=== PATIENT | male | born 1950 | race Caucasian/White ===

== ENCOUNTER 2019-11-05 10:42 | Outpatient (CLI) | payer OTHER, SELFPAY ==
--- NOTE | ~2019-11-05 | XR_ITS ---
EXAMINATION: XR chest 2V EXAM DATE: 11/05/2019 11:21 INDICATION: Personal history of nicotine dependence. TECHNIQUE: Frontal and lateral projections of the chest obtained and reviewed. There is no prior fariba dy for comparison. FINDINGS: The lungs are clear. There are no pleural effusions. The cardiomediastinal silhouette is within normal limits. There is no pneumothorax suspected. The bones and soft tissues are unremarkab le. There is aortic arterial sclerosis. IMPRESSION: Unremarkable chest x-ray exam. Reviewed, dictated and finalized at location A.
[2019-11-05 16:57] LABS: Basophils Absolute Auto 0.1 K/mm3 (0.0-0.1); Basophils Percent Auto 0.6 % (0.2-1.2); Eosinophils Absolute Auto 0.2 K/mm3 (0-0.3); Eosinophils Percent Auto 1.7 % (0-4.4); Immature Granulocyte Absolute 0.02 K/mm3 (0.00-0.031); Immature Granulocyte Percent A 0.2 % (0-0.5); Lymphocytes Absolute Auto 2.09 K/mm3 (0.9-3.2); Mean Corpuscular Hemoglobin 30.1 pg (26-34); Mean Corpuscular Volume 88.3 fl (80-100); Mean Platelet Volume 10.2 fl (7.4-10.4); Monocytes Absolute Auto 0.7 K/mm3 (0.1-0.6); Monocytes Percent Auto 7.8 % (2.6-8.5); Neutrophils Absolute Auto 5.7 K/mm3 (1.3-6.7); Neutrophils Percent Auto 65.7 % (45.5-73.1); Platelet Count Result 236 k/mm3 (150-375); Red Blood Count 5.32 M/mm3 (4.6-6.20); Red Cell Distribution Width 13.2 % (11.5-14.5); White Blood Count 8.7 K/mm3 (4.5-10.0)
[2019-11-05 17:04] LABS: Add Urine Microscopic? YES; Appearance Urine Clear (Clear); Bilirubin Urine Negative (Negative); Blood Urine Negative (Negative); Color Urine Amber (Yellow); Glucose Urine UA 1+ mg/dL (Negative); Hyaline Casts Urine 30-49 /lpf; Ketones Urine Negative (Negative); Leukocyte Esterase Ur Negative LEU/UL (Negative); Mucus Urine Moderate /lpf; Nitrate Urine Negative (Negative); Protein Urine 1+ mg/dL (Negative); RBC Urine 0-2 /hpf (0-2); Specific Grav Ur 1.033 (1.001-1.035); Squamous Epithelial Cell Urine Rare /hpf (Few); WBC Urine 0-3 /hpf
[2019-11-05 17:05] LABS: IFOB Positive Control Positive; Immunochemical Fecal Occult Bl Negative (N)
[2019-11-05 18:06] LABS: Alanine Aminotransferase 26 U/L (4-50); Albumin Level 4.6 g/dL (3.5-5.1); Alkaline Phosphatase 49 U/L (38-126); Aspartate Amino Transferase 30 U/L (17-59); Bilirubin,Total 0.7 mg/dL (0.2-1.3); Blood Urea Nitrogen 18 mg/dL (9-20); Calcium 10.6 mg/dL (8.4-10.2); Carbon Dioxide 22 mmol/L (22-30); Chloride 104 mmol/L (98-107); Cholesterol 186 mg/dL (0-200); Estimated Glomerular Filt Rate > 60; Glucose 180 mg/dL (75-110); HDL Direct 54 mg/dL; Potassium 4.7 mmol/L (3.4-5.0); Sodium 138 mmol/L (137-145); Triglycerides 225 mg/dL (<150)
[2019-11-05 18:07] LABS: Iron 97 ug/dL (49-181)
[2019-11-05 18:14] LABS: LDL Cholesterol Direct 109 mg/dL
[2019-11-05 18:21] LABS: Percent Iron Saturation 23 % (20-50); Vitamin D 25 Hydroxy 31.7 ng/mL
[2019-11-05 18:34] LABS: Prostate Specific Antigen 0.1 ng/mL (< OR = 4.0)
[2019-11-05 19:11] LABS: Folic Acid > 20.0 ng/mL (2.76->20)
[2019-11-06 08:35] LABS: Creatinine Urine 418.7 mg/dL
== END 2019-11-05 10:43 | disposition home or self-care (01) ==
PROVIDERS: PCP Family Medicine; Visit Provider Family Medicine
DX: R53.83 Other fatigue (principal); Z79.899 Other long term (current) drug therapy; E11.9 Type 2 diabetes mellitus without complications; R23.2 Flushing; Z82.62 Family history of osteoporosis; Z86.010 Personal history of colon polyps; Z87.891 Personal history of nicotine dependence; Z12.5 Encounter for screening for malignant neoplasm of prostate
CPT/HCPCS: 36415; 71046; 80053; 80061; 81001; 82043; 82274; 82306; 82607; 82728; 82746; 83036; 83540; 83550; 84153; 84443; 84681; 85025; G0103

== ENCOUNTER 2021-01-06 12:18 | Outpatient (CLI) | payer OTHER, SELFPAY ==
--- NOTE | ~2021-01-06 | XR_ITS ---
EXAMINATION: XR chest 2V 01/06/2021 13:27 INDICATION: Personal history of nicotine dependence PROCEDURE: PA and lateral views of the chest COMPARISON: 11/05/2019 FINDINGS: The lungs are clear. The cardiomediastinal silhouette is within normal limits. There are no pleural effusions. There is no pneumothorax suspected. IMPRESSION: 1: NO ACUTE CARDIOPULMONARY DISEASE. Reviewed, dictated and finalized at location B.
[2021-01-06 18:57] LABS: Basophils Absolute Auto 0.1 K/mm3 (0.0-0.1); Basophils Percent Auto 0.6 % (0.2-1.2); Eosinophils Absolute Auto 0.2 K/mm3 (0-0.3); Eosinophils Percent Auto 1.8 % (0-4.4); Hematocrit 48.6 % (42.0-52.0); Immature Granulocyte Absolute 0.02 K/mm3 (0.00-0.031); Immature Granulocyte Percent A 0.2 % (0-0.5); Lymphocytes Absolute Auto 2.14 K/mm3 (0.9-3.2); Lymphocytes Percent Auto 25.8 % (18.3-44.2); Mean Corpuscular HGB Conc 32.9 g/dl (32-36); Mean Corpuscular Hemoglobin 29.3 pg (26-34); Mean Platelet Volume 10.3 fl (7.4-10.4); Monocytes Absolute Auto 0.6 K/mm3 (0.1-0.6); Neutrophils Absolute Auto 5.4 K/mm3 (1.3-6.7); Neutrophils Percent Auto 64.6 % (45.5-73.1); Platelet Count Result 226 k/mm3 (150-375); Red Blood Count 5.46 M/mm3 (4.6-6.20); Red Cell Distribution Width 13.2 % (11.5-14.5); White Blood Count 8.3 K/mm3 (4.5-10.0)
[2021-01-06 19:01] LABS: Add Urine Microscopic? YES; Appearance Urine Cloudy (Clear); Bilirubin Urine Negative (Negative); Blood Urine Negative (Negative); Color Urine Yellow (Yellow); Glucose Urine UA 2+ mg/dL (Negative); Ketones Urine Negative (Negative); Leukocyte Esterase Ur Negative LEU/UL (Negative); Mucus Urine Few /lpf; Nitrate Urine Negative (Negative); Protein Urine 2+ mg/dL (Negative); RBC Urine 0-2 /hpf (0-2); Specific Grav Ur 1.023 (1.001-1.035); Urobilinogen Urine Negative mg/dL (<2.0); WBC Urine 0-3 /hpf
[2021-01-06 19:21] LABS: Alanine Aminotransferase 25 U/L (4-50); Albumin Level 4.6 g/dL (3.5-5.1); Alkaline Phosphatase 39 U/L (38-126); Anion Gap 11 mmol/L (8-16); Aspartate Amino Transferase 30 U/L (17-59); Bilirubin,Total 0.9 mg/dL (0.2-1.3); Blood Urea Nitrogen 14 mg/dL (9-20); Calcium 11.1 mg/dL (8.4-10.2); Carbon Dioxide 25 mmol/L (22-30); Chloride 103 mmol/L (98-107); Cholesterol 191 mg/dL (0-200); Estimated Glomerular Filt Rate > 60; Glucose 171 mg/dL (75-110); HDL Direct 54 mg/dL; Potassium 4.7 mmol/L (3.4-5.0); Sodium 139 mmol/L (137-145); Triglycerides 274 mg/dL (<150)
[2021-01-06 19:24] LABS: Hemoglobin A1C 10.1 % (<5.7)
[2021-01-06 19:32] LABS: LDL Cholesterol Direct 87 mg/dL
[2021-01-06 19:39] LABS: Vitamin D 25 Hydroxy 32.4 ng/mL
[2021-01-06 19:52] LABS: Prostate Specific Antigen 0.1 ng/mL (< OR = 4.0)
[2021-01-06 20:30] LABS: Folic Acid > 20.0 ng/mL (2.76->20)
== END 2021-01-06 12:19 | disposition home or self-care (01) ==
PROVIDERS: PCP Family Medicine; Visit Provider Family Medicine
DX: E11.65 Type 2 diabetes mellitus with hyperglycemia (principal); R53.83 Other fatigue; Z13.9 Encounter for screening, unspecified; Z79.899 Other long term (current) drug therapy; Z82.62 Family history of osteoporosis; I10 Essential (primary) hypertension; Z87.891 Personal history of nicotine dependence; Z12.5 Encounter for screening for malignant neoplasm of prostate
CPT/HCPCS: 36415; 71046; 80053; 80061; 81001; 82306; 82607; 82746; 83036; 84153; 85025; G0103

== ENCOUNTER 2021-07-07 09:42 | Outpatient (CLI) | payer OTHER, SELFPAY ==
[2021-07-07 20:16] LABS: Anion Gap 13 mmol/L (8-16); Blood Urea Nitrogen 13 mg/dL (9-20); Calcium 11.1 mg/dL (8.4-10.2); Carbon Dioxide 24 mmol/L (22-30); Chloride 98 mmol/L (98-107); Cholesterol 202 mg/dL (0-200); Estimated Glomerular Filt Rate > 60; Glucose 246 mg/dL (65-110); HDL Direct 65 mg/dL; Potassium 4.7 mmol/L (3.4-5.0); Sodium 135 mmol/L (137-145); Triglycerides 274 mg/dL (<150)
[2021-07-07 20:22] LABS: Alanine Aminotransferase 23 U/L (4-50); Albumin Level 4.9 g/dL (3.5-5.1); Alkaline Phosphatase 43 U/L (38-126); Anion Gap 13 mmol/L (8-16); Aspartate Amino Transferase 26 U/L (17-59); Bilirubin,Total 0.8 mg/dL (0.2-1.3); Blood Urea Nitrogen 14 mg/dL (9-20); Calcium 11.1 mg/dL (8.4-10.2); Carbon Dioxide 25 mmol/L (22-30); Chloride 98 mmol/L (98-107); Estimated Glomerular Filt Rate > 60; Glucose 247 mg/dL (65-110); Potassium 4.6 mmol/L (3.4-5.0); Sodium 136 mmol/L (137-145)
[2021-07-07 20:27] LABS: LDL Cholesterol Direct 105 mg/dL
[2021-07-07 20:32] LABS: Hemoglobin A1C 10.9 % (<5.7)
[2021-07-07 21:25] LABS: Creatinine Urine 104.9 mg/dL
[2021-07-07 22:02] LABS: MALB Creatinine Ratio 386.1 mg/g (0-30)
== END 2021-07-07 09:43 | disposition home or self-care (01) ==
LOC: ANHBWCLAB 09:43
PROVIDERS: PCP Family Medicine; Visit Provider Family Medicine
DX: E11.9 Type 2 diabetes mellitus without complications (principal)
CPT/HCPCS: 36415; 80048; 80053; 80061; 82043; 83036

== ENCOUNTER 2021-07-21 08:59 | Outpatient (CLI) | payer OTHER, SELFPAY ==
[2021-07-25 21:55] LABS: Ionized Calcium 5.4 mg/dL (4.8-5.6)
== END 2021-07-21 09:00 | disposition home or self-care (01) ==
PROVIDERS: PCP Family Medicine; Visit Provider Family Medicine
DX: E83.52 Hypercalcemia (principal)
CPT/HCPCS: 36415; 82330

== ENCOUNTER 2021-10-06 09:43 | Outpatient (CLI) | payer OTHER, SELFPAY ==
[2021-10-06 19:36] LABS: Anion Gap 12 mmol/L (8-16); Blood Urea Nitrogen 15 mg/dL (9-20); Calcium 11.3 mg/dL (8.4-10.2); Carbon Dioxide 25 mmol/L (22-30); Chloride 98 mmol/L (98-107); Estimated Glomerular Filt Rate > 60; Glucose 276 mg/dL (65-110); Potassium 4.8 mmol/L (3.4-5.0); Sodium 135 mmol/L (137-145)
[2021-10-06 19:50] LABS: Hemoglobin A1C 11.2 % (<5.7)
[2021-10-06 21:08] LABS: Creatinine Urine 89.3 mg/dL
[2021-10-06 21:25] LABS: MALB Creatinine Ratio 367.2 mg/g (0-30); Microalbumin Urine Random 327.9 mg/L (0-16.7)
[2021-10-09 16:35] LABS: Ionized Calcium 5.6 mg/dL (4.8-5.6)
== END 2021-10-06 09:44 | disposition home or self-care (01) ==
PROVIDERS: PCP Family Medicine; Visit Provider Family Medicine
DX: E11.65 Type 2 diabetes mellitus with hyperglycemia (principal); E83.52 Hypercalcemia; Z87.891 Personal history of nicotine dependence
CPT/HCPCS: 36415; 80048; 82043; 82330; 83036

== ENCOUNTER 2022-02-02 14:23 | Outpatient (CLI) | payer OTHER, SELFPAY ==
[2022-02-02 20:12] LABS: Hemoglobin A1C 6.6 % (<5.7)
[2022-02-02 20:35] LABS: Creatinine Urine 109.6 mg/dL
[2022-02-02 20:39] LABS: MALB Creatinine Ratio 129.8 mg/g (0-30); Microalbumin Urine Random 142.3 mg/L (0-16.7)
== END 2022-02-02 14:24 | disposition home or self-care (01) ==
PROVIDERS: PCP Family Medicine; Visit Provider Family Medicine
DX: E11.9 Type 2 diabetes mellitus without complications (principal)
CPT/HCPCS: 36415; 82043; 83036

== ENCOUNTER 2022-05-05 14:51 | Outpatient (CLI) | payer OTHER, SELFPAY ==
[2022-05-05 19:14] LABS: Hemoglobin A1C 7.4 % (<5.7)
[2022-05-05 19:26] LABS: Alanine Aminotransferase 22 U/L (6-50); Albumin Level 4.9 g/dL (3.5-5.1); Alkaline Phosphatase 37 U/L (38-126); Anion Gap 16 mmol/L (8-16); Aspartate Amino Transferase 27 U/L (17-59); Bilirubin,Total 0.5 mg/dL (0.2-1.3); Blood Urea Nitrogen 13 mg/dL (9-20); Calcium 10.4 mg/dL (8.4-10.2); Carbon Dioxide 25 mmol/L (22-30); Chloride 101 mmol/L (98-107); Estimated Glomerular Filt Rate > 60; Glucose 89 mg/dL (65-110); Sodium 142 mmol/L (137-145)
[2022-05-05 19:32] LABS: Creatinine Urine 98.7 mg/dL
[2022-05-05 19:37] LABS: Vitamin D 25 Hydroxy 35.8 ng/mL
[2022-05-05 19:49] LABS: MALB Creatinine Ratio 230.6 mg/g (0-30); Microalbumin Urine Random 227.6 mg/L (0-16.7)
[2022-05-08 09:45] LABS: Ionized Calcium 5.3 mg/dL (4.8-5.6)
[2022-05-14 16:59] LABS: Parathyroid Hormone Related Pr 13 pg/mL (11-20)
== END 2022-05-05 14:52 | disposition home or self-care (01) ==
LOC: ANHBWCLAB 14:53
PROVIDERS: PCP Family Medicine; Visit Provider Family Medicine
DX: E11.9 Type 2 diabetes mellitus without complications (principal); E83.52 Hypercalcemia
CPT/HCPCS: 36415; 80053; 82043; 82306; 82330; 83036; 83519

== ENCOUNTER 2022-11-10 15:14 | Outpatient (CLI) | payer OTHER, SELFPAY ==
[2022-11-10 18:04] LABS: Basophils Absolute Auto 0.1 K/mm3 (0.0-0.1); Basophils Percent Auto 0.5 % (0.2-1.2); Eosinophils Absolute Auto 0.2 K/mm3 (0-0.3); Eosinophils Percent Auto 1.6 % (0-4.4); Hematocrit 43.7 % (42.0-52.0); Hemoglobin 14.9 g/dL (14.0-18.0); Immature Granulocyte Absolute 0.03 K/mm3 (0.00-0.031); Immature Granulocyte Percent A 0.3 % (0-0.5); Lymphocytes Absolute Auto 2.53 K/mm3 (0.9-3.2); Lymphocytes Percent Auto 26.8 % (18.3-44.2); Mean Corpuscular HGB Conc 34.1 g/dl (32-36); Mean Corpuscular Hemoglobin 30.8 pg (26-34); Mean Corpuscular Volume 90.5 fl (80-100); Mean Platelet Volume 10.1 fl (7.4-10.4); Monocytes Absolute Auto 0.7 K/mm3 (0.1-0.6); Monocytes Percent Auto 7.2 % (2.6-8.5); Neutrophils Percent Auto 63.6 % (45.5-73.1); Platelet Count Result 237 k/mm3 (150-375); Red Blood Count 4.83 M/mm3 (4.6-6.20); White Blood Count 9.4 K/mm3 (4.5-10.0)
[2022-11-10 18:48] LABS: Vitamin D 25 Hydroxy 38.5 ng/mL
[2022-11-10 18:53] LABS: Hemoglobin A1C 7.5 % (<5.7)
[2022-11-10 19:14] LABS: Alanine Aminotransferase 24 U/L (6-50); Albumin Level 4.8 g/dL (3.5-5.1); Alkaline Phosphatase 43 U/L (38-126); Anion Gap 9 mmol/L (8-16); Aspartate Amino Transferase 36 U/L (17-59); Bilirubin,Total 0.7 mg/dL (0.2-1.3); Blood Urea Nitrogen 14 mg/dL (9-20); Calcium 10.4 mg/dL (8.4-10.2); Carbon Dioxide 25 mmol/L (22-30); Chloride 102 mmol/L (98-107); Cholesterol 164 mg/dL (0-200); Estimated Glomerular Filt Rate > 60; Glucose 109 mg/dL (65-110); HDL Direct 46 mg/dL; Potassium 4.3 mmol/L (3.4-5.0); Sodium 136 mmol/L (137-145); Triglycerides 226 mg/dL (<150)
[2022-11-10 19:25] LABS: LDL Cholesterol Direct 89 mg/dL
[2022-11-10 19:41] LABS: MALB Creatinine Ratio 112.4 mg/g (0-30); Microalbumin Urine Random 147.3 mg/L (0-16.7)
[2022-11-10 19:43] LABS: Prostate Specific Antigen 0.1 ng/mL (< OR = 4.0)
== END 2022-11-10 15:15 | disposition home or self-care (01) ==
LOC: ANHBWCLAB 15:15
PROVIDERS: PCP Family Medicine; Visit Provider Family Medicine
DX: R53.83 Other fatigue (principal); E83.52 Hypercalcemia; E11.65 Type 2 diabetes mellitus with hyperglycemia; Z87.891 Personal history of nicotine dependence; Z12.5 Encounter for screening for malignant neoplasm of prostate
CPT/HCPCS: 36415; 80053; 80061; 82043; 82306; 83036; 84153; 85025; G0103

== ENCOUNTER 2023-05-16 13:37 | Outpatient (CLI) | payer OTHER, SELFPAY ==
--- NOTE | ~2023-05-16 | XR_ITS ---
Left Shoulder Technique: AP and scapular Y views were obtained. Clinical History: Pain Findings: No fracture or dislocation is seen. Osseous alignment is anatomic. The glenohumeral and acr omioclavicular joint spaces are preserved. Small focus of calcification suggests calcific tendinitis focally the distal rotator cuff insertion. Impression: Focal calcific tendinitis of the distal rotator cuff insertion. Reviewed, dictated and finalized at location M. Impression: Focal calcific tendinitis of the distal rotator cuff insertion.
[2023-05-16 19:32] LABS: Creatinine Urine 153.8 mg/dL
[2023-05-16 19:35] LABS: MALB Creatinine Ratio 54.2 mg/g (0-30); Microalbumin Urine Random 83.4 mg/L (0-16.7)
[2023-05-16 20:12] LABS: Alanine Aminotransferase 21 U/L (6-50); Albumin Level 4.7 g/dL (3.5-5.1); Alkaline Phosphatase 47 U/L (38-126); Anion Gap 10 mmol/L (8-16); Aspartate Amino Transferase 41 U/L (17-59); Bilirubin,Total 0.7 mg/dL (0.2-1.3); Blood Urea Nitrogen 18 mg/dL (9-20); Calcium 10.2 mg/dL (8.4-10.2); Carbon Dioxide 26 mmol/L (22-30); Chloride 101 mmol/L (98-107); Estimated Glomerular Filt Rate > 60; Glucose 148 mg/dL (65-110); Potassium 4.9 mmol/L (3.4-5.0); Sodium 137 mmol/L (137-145)
[2023-05-17 07:20] LABS: Hemoglobin A1C 7.4 % (<5.7)
== END 2023-05-16 13:38 | disposition home or self-care (01) ==
PROVIDERS: PCP Family Medicine; Visit Provider Family Medicine
DX: M75.32 Calcific tendinitis of left shoulder (principal); E11.65 Type 2 diabetes mellitus with hyperglycemia
CPT/HCPCS: 36415; 73030; 80053; 82043; 83036

== ENCOUNTER 2023-11-21 08:33 | Outpatient (CLI) | payer OTHER, SELFPAY ==
[2023-11-21 19:06] LABS: Alanine Aminotransferase 26 U/L (6-50); Albumin Level 4.5 g/dL (3.5-5.1); Alkaline Phosphatase 54 U/L (38-126); Anion Gap 7 mmol/L (4-12); Aspartate Amino Transferase 42 U/L (17-59); Bilirubin,Total 0.8 mg/dL (0.2-1.3); Blood Urea Nitrogen 15 mg/dL (9-20); Calcium 10.1 mg/dL (8.4-10.2); Carbon Dioxide 23 mmol/L (22-30); Chloride 108 mmol/L (98-107); Cholesterol 141 mg/dL (0-200); Estimated Glomerular Filt Rate > 60; Glucose 205 mg/dL (65-110); HDL Direct 53 mg/dL; Potassium 4.8 mmol/L (3.4-5.0); Sodium 138 mmol/L (137-145); Triglycerides 114 mg/dL (<150)
[2023-11-21 19:18] LABS: LDL Cholesterol Direct 74 mg/dL
[2023-11-21 19:24] LABS: Hematocrit 45.6 % (42.0-52.0); Hemoglobin 14.3 g/dL (14.0-18.0); Mean Corpuscular HGB Conc 31.4 g/dl (32-36); Mean Corpuscular Hemoglobin 29.2 pg (26-34); Mean Corpuscular Volume 93.1 fl (80-100); Mean Platelet Volume 10.2 fl (7.4-10.4); Platelet Count Result 222 k/mm3 (150-375); Red Cell Distribution Width 13.6 % (11.5-14.5); White Blood Count 7.3 K/mm3 (4.5-10.0)
[2023-11-21 19:31] LABS: Prostate Specific Antigen < 0.1 ng/mL (< OR = 4.0)
[2023-11-21 22:11] LABS: Hemoglobin A1C 8.3 % (<5.7)
== END 2023-11-21 08:34 | disposition home or self-care (01) ==
LOC: ANHBWCLAB 08:34
PROVIDERS: PCP Nurse Practitioner Adult Health; Visit Provider Family Medicine
DX: Z00.00 Encounter for general adult medical examination without abnormal findings (principal); H53.8 Other visual disturbances; H53.9 Unspecified visual disturbance; M25.512 Pain in left shoulder; R94.02 Abnormal brain scan; Z82.3 Family history of stroke; E11.65 Type 2 diabetes mellitus with hyperglycemia; Z12.5 Encounter for screening for malignant neoplasm of prostate
CPT/HCPCS: 36415; 80053; 80061; 83036; 84153; 85027; G0103